=== PATIENT | female | born 1985 | race Hispanic/Latino ===

== ENCOUNTER 2016-12-02 13:24 | Emergency (ER) | payer SELFPAY ==
[~2016-12-02 13:24] MED LIST: LIDOCAINE 1% 10 ML VIAL INJ ONE
[2016-12-02 13:51] VITALS: TEMP 99
[2016-12-02] MEDS ORDERED: miSOPROStol 100 MCG TAB PR ONE (14:29)
--- NOTE | 2016-12-02 15:19 | ED.PDOC ---
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 The patient is approximately 8 weeks by gestational age. The patient started having some bleeding approximately one to 2 hours prior to arrival. No trauma. No previous pregnancies. was confirmed by her trimmer helper with a urinalysis just a week or 2 ago. She is having cramping and charlie bleeding. Estimated blood loss to this time approximately 50 cc. Timing/Duration: 1-3 hours Severity: moderate Improving Factors: nothing Worsening Factors: nothing Associated Symptoms: malaise Allergies/Adverse Reactions: Allergies NO KNOWN ALLERGY Allergy (Verified 12/02/16 13:50) Home Medications: Ambulatory Orders 1 each PO DAILY 12/02/16 Review of Systems - Review of Systems Constitutional: States: malaise EENTM: States: no symptoms reported Respiratory: States: no symptoms reported Cardiology: States: no symptoms reported Gastrointestinal/Abdominal: States: abdominal pain Genitourinary: States: other - bleeding Musculoskeletal: States: no symptoms reported Skin: States: no symptoms reported Neurological: States: no symptoms reported Endocrine: States: no symptoms reported All other Systems: No Change from Baseline Past Medical History (General) - Patient Medical History Surgical History: no surgical history - Vaccination History Hx Tetanus, Diphtheria Vaccination: No Hx Influenza Vaccination: No Hx Pneumococcal Vaccination: No - Social History Hx Tobacco Use: Yes Hx Alcohol Use: No Hx Substance Use: Yes - marijuana x1 Hx Substance Use Treatment: No - Activities of Daily Living Hospice Agency (if applicable):: None - Female History Patient is a Female of Child Bearing Age (10 -59 yrs old): Yes Patient : Yes Family Medical History - Family History Mother Family History: Unknown Physical Exam - Physical Exam General Appearance: Alert, No apparent distress Eye Exam: bilateral normal Ears, Nose, Throat: hearing grossly normal, normal ENT inspection, normal pharynx Neck: non-tender, full range of motion, supple, normal inspection Respiratory: chest non-tender, lungs clear, normal breath sounds, no respiratory distress, no accessory muscle use Cardiovascular/Chest: normal peripheral pulses, regular rate, rhythm, no edema Peripheral Pulses: radial,right: 2+, radial,left: 2+, dorsalis pedis,right: 2+, dorsalis pedis,left: 2+, posterior tibialis,right: 2+, posterior tibialis,left: 2+ Gastrointestinal/Abdominal: soft, other - mild suprapubic discomfort palpation Rectal Exam: deferred Back Exam: normal inspection, no CVA tenderness, no vertebral tenderness Extremity: normal range of motion, non-tender, normal inspection, no pedal edema Neurologic: vat washer II-XII nml as tested, alert, normal mood/affect, oriented x 3 Skin Exam: normal color Comments: Vital Signs - 24 hr 12/02/16 13:35 Temperature 99.0 F Pulse Rate [ 103 H pulse ox] Respiratory 24 Rate Blood Pressure 121/69 [Left Arm] O2 Sat by Pulse 95 Oximetry pelvic exam shows charlie blood and clots. Ring tenaculum used to removed blood clots along with large swabs. os was open and products of conception were grasped and removed. Specimen collected. uterine massage was performed. Fair hemostasis was obtained. Cytotec NM 600 mg was placed. Progress - Progress Progress: 12/02/16 15:21 the patient is a 31-year-old female presenting to the emergency room secondary to being in the process of having a miscarriage. Products of conception were removed from the open cervical os manually. The patient received 1 dose of IM Rocephin. Her blood type is A+ and RhoGAM was not required per protocol. She needs to wait 3-4 months before attempting to get again. Cytotec was placed for hemostasis. The patient does need follow-up with her trimmer helper in a few weeks and then later for her Pap smear and a repeat serum hCG to make sure that it goes to 0. ER warnings are given for any worsening. repeat ultrasound performed by [facility] showed very little in the way of retained products of conception. Ultrasound prior showed no evidence of a viable . She can follow up with her primary care doctor next week. She should anticipate some spotting for the next 3-4 days. - Results/Orders Results/Orders: Laboratory Tests 12/02/16 12/02/16 12/02/16 14:20 14:20 14:20 WBC 8.6 RBC 4.01 L Hgb 11.8 L Hct 36.3 MCV 90.4 MCH 29.4 MCHC 32.4 L RDW 14.3 Plt Count 210 MPV 9.3 Absolute Neuts (auto) 6.20 Absolute Lymphs (auto) 1.70 Absolute Monos (auto) 0.60 Absolute Eos (auto) 0.20 Absolute Basos (auto) 0.00 Neutrophils % 71.5 Lymphocytes % 19.6 L Monocytes % 6.4 Eosinophils % 2.2 Basophils % 0.3 PT 11.3 INR 1.000 PTT (SP) 28.6 Sodium 138 Potassium 3.8 Chloride 107 Carbon Dioxide 25 Anion Gap 9.8 L BUN 13 Creatinine < 0.40 L BUN/Creatinine Ratio 32.0 H Random Glucose 124 H Serum Osmolality 277.2 Calcium 9.1 Total Bilirubin 0.2 AST 15 ALT 11 Alkaline Phosphatase 37 L Serum Total Protein 7.2 Albumin 4.2 Globulin 3.0 Albumin/Globulin Ratio 1.4 Beta HCG, Quant 7757.0 H Patient ABO/Rh 12/02/16 14:20 WBC RBC Hgb Hct MCV MCH MCHC RDW Plt Count MPV Absolute Neuts (auto) Absolute Lymphs (auto) Absolute Monos (auto) Absolute Eos (auto) Absolute Basos (auto) Neutrophils % Lymphocytes % Monocytes % Eosinophils % Basophils % PT INR PTT (SP) Sodium Potassium Chloride Carbon Dioxide Anion Gap BUN Creatinine BUN/Creatinine Ratio Random Glucose Serum Osmolality Calcium Total Bilirubin AST ALT Alkaline Phosphatase Serum Total Protein Albumin Globulin Albumin/Globulin Ratio Beta HCG, Quant Patient ABO/Rh A POSITIVE Departure - Departure Clinical Impression: Complete miscarriage Disposition: Discharge to Home or Self Care Condition: Fair Departure Forms: ED Discharge - Pt. Copy, Patient Portal Self Enrollment Instructions: DI for Miscarriage Diet: regular diet Activity: increase activity as tolerated - pelvic rest for 6 weeks Home Medications: Ambulatory Orders 1 each PO DAILY 12/02/16 Additional Instructions: the patient is a 31-year-old female presenting to the emergency room secondary to being in the process of having a miscarriage. Products of conception were removed from the open cervical os manually. The patient received 1 dose of IM Rocephin. Her blood type is A+ and RhoGAM was not required per protocol. She needs to wait 3-4 months before attempting to get again. Cytotec was placed for hemostasis. The patient does need follow-up with her trimmer helper in a few weeks and then later for her Pap smear and a repeat serum hCG to make sure that it goes to 0. ER warnings are given for any worsening. repeat ultrasound performed by me showed very little in the way of retained products of conception. Ultrasound prior showed no evidence of a viable . She can follow up with her primary care doctor next week. She should anticipate some spotting for the next 3-4 days.
[2016-12-02] MEDS ORDERED: cefTRIAXone SODIUM 1 GM VIAL IM ONE (15:26)
[2016-12-02 16:59] VITALS: BP 113/70; O2SAT 96
== END 2016-12-02 16:39 | disposition home or self-care (01) ==
LOC: ER 13:24
DX: O03.9 Complete or unspecified spontaneous abortion without complication (principal); Z87.891 Personal history of nicotine dependence
CPT/HCPCS: 36415; 80053; 84702; 85025; 85610; 85730; 86900; 86901; J0696

== ENCOUNTER 2017-10-06 08:20 | Emergency (ER) | payer SELFPAY ==
[2017-10-06 08:58] VITALS: TEMP 99.2; O2SAT 100
[2017-10-06] MEDS ORDERED: CHLORHEXIDINE GLUCONATE 4 % 15 ML UD TOP ONE (09:10)
[2017-10-06] MEDS ORDERED: LIDOCAINE 1% 10 ML VIAL INJ ONE (09:10)
--- NOTE | 2017-10-06 10:00 | ED.PDOC ---
History of Present Illness - General Chief Complaint: Bite: Animal/Insect/Human Stated Complaint: dog bite Time Seen by Provider: 10/06/17 09:57 Source: patient Exam Limitations: no limitations - History of Present Illness Initial Comments: Ashley Kenny 32 y/o female brought by family with dog bite on her both legs by the neighbors dog;stated was at neighbors yard arguing with her and neighbors dog-pit bull came out and bit her on both legs.Reported to animal control -dogs quarantined. Timing/Duration: just prior to arrival Severity: moderate Location: extremities - both legs Improving Factors: nothing Worsening Factors: nothing Associated Symptoms: denies symptoms Allergies/Adverse Reactions: Allergies NO KNOWN ALLERGY Allergy (Verified 10/06/17 08:58) Home Medications: Ambulatory Orders 1 each PO DAILY 12/02/16 Amoxicillin & Pot Clavulanate [Augmentin Tab] 875 mg PO BID #20 tab 10/06/17 Amoxicillin [Amoxil] 250 mg PO BID #20 cap 10/06/17 Review of Systems - Review of Systems Constitutional: States: no symptoms reported EENTM: States: no symptoms reported Respiratory: States: no symptoms reported Cardiology: States: no symptoms reported Skin: States: see HPI All other Systems: Reviewed and Negative, No Change from Baseline Past Medical History (General) - Patient Medical History Hx Seizures: No Hx Stroke: No Hx Dementia: No Hx Asthma: No Hx of COPD: No Hx Cardiac Disorders: No Hx Congestive Heart Failure: No Hx Pacemaker: No Hx Hypertension: No Hx Thyroid Disease: No Hx Diabetes: No Hx Gastroesophageal Reflux: No Hx Renal Disease: No Hx of HIV: No Hx MRSA: No Surgical History: no surgical history - Vaccination History Hx Tetanus, Diphtheria Vaccination: No Hx Influenza Vaccination: No Hx Pneumococcal Vaccination: No - Social History Hx Tobacco Use: Yes Hx Alcohol Use: No Hx Substance Use: Yes - marijuana x1 Hx Substance Use Treatment: No Hx Physical Abuse: No Hx Emotional Abuse: No - Female History Patient is a Female of Child Bearing Age (10 -59 yrs old): Yes Hx Last Menstrual Period: 09/22/17 Patient : No - Triage Comment ED Triage Comment: LMP "two weeks ago" Family Medical History - Family History Mother Family History: Unknown Physical Exam - Physical Exam General Appearance: Alert, Comfortable, No apparent distress Eyes, Ears, Nose, Throat Exam: normal ENT inspection Neck: full range of motion, supple Cardiovascular/Chest: regular rate, rhythm, no murmur Respiratory: chest non-tender, lungs clear, normal breath sounds Gastrointestinal/Abdominal: non tender, soft, no organomegaly Extremity: normal range of motion, non-tender, no pedal edema, no calf tenderness Neurologic: alert, oriented x 3 Skin Exam: warm/dry, normal color, other - multiple laceration small right leg ; left leg 6 cm laceration lateral /medial aspect mid 3rd/leg left Progress - Progress Progress: 10/06/17 10:06 Vital Signs - 24 hr 10/06/17 08:35 Temperature 99.2 F Pulse Rate [ 121 H pulse ox] Respiratory 20 Rate Blood Pressure 124/81 [Left Arm] O2 Sat by Pulse 100 Oximetry Procedures - Laceration/Wound Repair Calf Wound Length (cm): 6 Wound's Depth, Shape: superficial, flap, stellate Wound Explored: no foreign body removed Irrigated w/ Saline (cc's): 50 Betadine Prep?: No - hibiclens Volume Anesthetic (cc's): 10 Wound Repaired With: steri-strips Number of Sutures: 5 Layer Closure?: No Sterile Dressing Applied?: Yes Departure - Departure Clinical Impression: Dog bite of multiple sites of left lower extremity Qualifiers: Encounter type: initial encounter Qualified Code(s): S81.852A - Open bite, left lower leg, initial encounter; W54.0XXA - Bitten by dog, initial encounter Laceration of leg Qualifiers: Encounter type: initial encounter Laterality: left Qualified Code(s): S81.812A - Laceration without foreign body, left lower leg, initial encounter Time of Disposition: 10:15 Disposition: Discharge to Home or Self Care Condition: Good Departure Forms: ED Discharge - Pt. Copy, Patient Portal Self Enrollment Instructions: DI for Animal Bites Prescriptions: Amoxicillin [Amoxil] 250 mg PO BID #20 cap Amoxicillin & Pot Clavulanate [Augmentin Tab] 875 mg PO BID #20 tab Home Medications: Ambulatory Orders 1 each PO DAILY 12/02/16 Amoxicillin & Pot Clavulanate [Augmentin Tab] 875 mg PO BID #20 tab 10/06/17 Amoxicillin [Amoxil] 250 mg PO BID #20 cap 10/06/17 Additional Instructions: Return to ER as needed;Remove steri strips 18 October 2017;Keep wound dry
[2017-10-06] MEDS ORDERED: TETANUS,DIPHTHERIA,PERTUSSIS 1 EA SYG IM ONE (10:01)
[2017-10-06 10:31] VITALS: BP 118/75
== END 2017-10-06 10:28 | disposition home or self-care (01) ==
LOC: ER 08:20
DX: S81.852A Open bite, left lower leg, initial encounter (principal); S81.851A Open bite, right lower leg, initial encounter; Z87.891 Personal history of nicotine dependence; Z23 Encounter for immunization; W54.0XXA Bitten by dog, initial encounter; Y92.9 Unspecified place or not applicable